=== PATIENT | male | born 1955 | race Caucasian/White ===

== ENCOUNTER 2016-06-06 23:10 | Observation (INO) ==
[2016-06-06] MEDS ORDERED: Aspirin 325 MG TABLET PO ONE (23:17)
[2016-06-06] MEDS ORDERED: 0.9 % Sodium Chloride 500 ML IVC ONE (23:17)
--- NOTE | 2016-06-06 23:34 | Emergency Department Note ---
START Narrative - START START: I examined this patient and my medical decision-making was reviewed with the QUESTIONED DOCUMENTS EXAMINER/PA/Advanced Practice Nurse/Resident Physician. I agree with the documented findings, disposition and treatment plan as described except to the extent set forth below. ED attending note: Patient seen with emergency medicine resident Dr. Oliva. Please see a copy of his note for details of the H&P, evaluation, management and disposition of this patient. We independently had [id number] contact with the patient Briefly: A 60-year-old male history of 2 prior cardiac stents presents with chest pain. 24 hours. With some fatigue. EKG shows no acute ischemic changes. Patient's heart scores elevated enough that with a troponin he will be admitted for further observation . PT stable.
[2016-06-06] MEDS: Nitroglycerin 0.4 MG TAB.SUBL SL PRN ×2 (23:36→23:42)
[2016-06-06 23:37] LABS: Basophils % 0.1 %; Eosinophils # 0.2 K/mcL (0.0-0.6); Eosinophils % 3.2 %; Hematocrit 43.9 % (37.5-50.1); Hemoglobin 14.6 g/dL (12.9-16.9); Immature Granulocytes % 0.6 % (0-4); Lymphocytes # 3.1 K/mcL (0.6-4.6); Lymphocytes % 44.3 %; Mean Corpuscular HGB Conc 33.3 g/dL (31.6-35.5); Mean Corpuscular Hemoglobin 30.4 pg (28.0-33.3); Mean Corpuscular Volume 91.3 fL (83.0-100.0); Mean Platelet Volume 9.8 fL (9.4-12.4); Monocytes # 0.7 K/mcL (0.0-1.3); Monocytes % 10.2 %; Neutrophils # 2.9 K/mcL (1.6-8.9); Platelet Count 215 K/mcL (140-400); Red Blood Count 4.81 M/mcL (4.19-5.50); Red Cell Distribution Width 13.2 % (11.5-14.5); Segmented Neutrophils % 41.6 %
[2016-06-06 23:49] LABS: BUN/Creatinine Ratio 21 (6-26); Blood Urea Nitrogen 22 mg/dL (8-26); Calcium 9.3 mg/dL (8.6-10.8); Carbon Dioxide 26 mEq/L (19-29); Chloride 109 mEq/L (98-109); Glucose 123 mg/dL (70-99); Osmolality,Calculated 299 (280-300); Potassium 4.1 mEq/L (3.5-4.5); Sodium 142 mEq/L (136-145); eGFR For African Americans > 60 (> 60); eGFR For Non-African Americans > 60 (> 60)
--- NOTE | 2016-06-06 23:51 | Emergency Department Note ---
Disposition Clinical Impression: Unstable angina Disposition: Admitted As Inpatient Condition: Undetermined Referrals: Unassigned,Provider [Non-Partnered Physician] - Forms: ED Satisfaction Letter Time of Disposition: 00:29 Chest Pain HPI - General Chief Complaint: ED Chest Pain Stated Complaint: chest pain Time Seen by Provider: 06/06/16 23:13 Source: patient, family Mode of arrival: ambulatory Limitations: no limitations Vital Signs Reviewed: Yes Nursing Notes Reviewed: Yes - History of Present Illness HPI Narrative: T10-year-old male with history of RI, hypertension, hyperlipidemia, right stairs emergency Department complaining of retrosternal chest pain with associated dyspnea that began earlier today. The patient states that his last RI was roughly 2 years ago and he received 2 stents at that time. The patient states that last year he came in for chest pain in the emergency department and received one more stent. The patient states this feels similar to his previous RI. The patient denies any other complaints at this time. The patient did not take any medication prior to arrival. The patient does regularly take his medications as prescribed. Patient denies any fever, chills, focalized weakness , abdominal pain, nausea, vomiting, unilateral leg swelling, recent surgery. Duration: constant Pain Location: substernal Severity: moderate Severity scale (1-10): 7 Quality: tightness, heaviness Pain Radiation: none Improves with: nothing Worsens with: nothing Associated symptoms: Reports: dyspnea Treatments prior to arrival chest pain: none - Related Data On Oral Contraceptives: No Home Medications Medication Instructions Recorded Confirmed Aspirin 81 mg PO HS 08/04/15 08/04/15 Atorvastatin [Lipitor] 20 mg PO HS 08/04/15 08/04/15 Lisinopril [Zestril] 5 mg PO HS 08/04/15 08/04/15 Nitroglycerin 0.4 mg SL Q5MIN PRN 08/04/15 08/04/15 Venlafaxine HCl [Venlafaxine HCl 150 mg PO HS 08/04/15 08/04/15 ER] Previous Rx's Medication Instructions Recorded Clopidogrel [Plavix] 75 mg PO HS 30 Days 08/05/15 Diltiazem CD (24hr) [Cardizem CD] 120 mg PO DAILY #30 cap.er.24h 08/05/15 Fenofibrate Nanocrystallized 145 mg PO DAILY #30 tablet 08/05/15 [Tricor] Allergies Allergy/AdvReac Type Severity Reaction Status Date / Time No Known Allergies Allergy Verified 08/04/15 06:45 All systems ED: reviewed and negative except as stated. Constitutional: Denies: fever, chills, weakness, weight change Eyes: Denies: eye pain, eye discharge, vision change ENT ED: Denies: ear pain, throat pain, dental pain, hearing loss, epistaxis, congestion, dysphagia Cardiovascular: Reports: chest pain. Denies: palpitations, dyspnea on exertion , orthopnea, edema, syncope Respiratory: Reports: dyspnea. Denies: cough, wheezes, hemoptysis, stridor Gastrointestinal: Denies: abdominal pain, nausea, vomiting, diarrhea, constipation, hematemesis, melena, hematochezia Genitourinary: Denies: urgency, dysuria, frequency, hematuria Musculoskeletal: Denies: back pain, neck pain, arthralgia, myalgia Integumentary: Denies: rash, abrasion, lesions Neurological: Denies: headache, weakness, numbness, paresthesias, confusion, abnormal gait, vertigo Chest Pain PMH - Past Medical History Medical history: Reports: coronary artery disease, hypertension, myocardial infarction Surgical history: Reports: angioplasty/stent Psychiatric history: Reports: no psych history - Social History Smoking Status: Never smoker Alcohol use: Reports: rarely Drug use: Reports: none Physical Exam Physical Exam: General: Patient alert, no acute distress, not lethargic HEENT: Head normal inspection, atraumatic, PERRLA, oropharynx grossly intact and normal, trachea midline, no JVD Chest: Nontraumatic, nontender, normal chest rise CV: RRR with no murmurs, rubs, gallops Respiratory: Lungs clear to auscultation bilaterally, no rales, rhonchi, wheezes. Abdomen: Normal inspection, Normal bowel sounds 4 quadrants, nontender to palpation : Patient deferred Extremities: Normal inspection, full range of motion, appropriate pulses, capillary refill under 2 seconds Neurological: Patient alert and oriented 3, cranial nerves II through XII grossly intact, GCS 15 Skin: Warm, intact, no rashes noted - General Limitations: no limitations General appearance: alert, in no apparent distress Course Vital Signs Temperature 98.7 F 06/06/16 23:13 Pulse Rate 82 06/06/16 23:13 Respiratory Rate 18 06/06/16 23:13 Blood Pressure 138/118 06/06/16 23:13 O2 Sat by Pulse Oximetry 95 06/06/16 23:13 Temperature 98.7 F 06/06/16 23:13 Pulse Rate 82 06/06/16 23:13 Respiratory Rate 18 06/06/16 23:13 Blood Pressure 138/118 06/06/16 23:13 O2 Sat by Pulse Oximetry 95 06/06/16 23:13 Oxygen Delivery Oxygen Delivery Room Air Chest Pain - MDM Narrative Medical decision making narrative: Dr. Gregory - Medical Records Medical records reviewed: Yes I reviewed the patient's medical records. - Lab Data Lab results reviewed: Yes I reviewed the patient's lab results. Result diagrams: 06/06/16 23:31 06/06/16 23:31 Lab Results 06/06/16 06/06/16 06/06/16 Range/Units 23:31 23:31 23:31 WBC 6.9 (4.3-11.1) K/mcL RBC 4.81 (4.19-5.50) M/mcL Hgb 14.6 (12.9-16.9) g/dL Hct 43.9 (37.5-50.1) % MCV 91.3 (83.0-100.0) fL MCH 30.4 (28.0-33.3) pg MCHC 33.3 (31.6-35.5) g/dL RDW 13.2 (11.5-14.5) % Plt Count 215 (140-400) K/mcL MPV 9.8 (9.4-12.4) fL Immature Gran % 0.6 (0-4) % Seg Neutrophils % 41.6 % Lymphocytes % 44.3 % Monocytes % 10.2 % Eosinophils % 3.2 % Basophils % 0.1 % Neutrophils # 2.9 (1.6-8.9) K/mcL Lymphocytes # 3.1 (0.6-4.6) K/mcL Monocytes # 0.7 (0.0-1.3) K/mcL Eosinophils # 0.2 (0.0-0.6) K/mcL Basophils # 0.0 (0.0-0.2) K/mcL Sodium 142 (136-145) mEq/L Potassium 4.1 (3.5-4.5) mEq/L Chloride 109 (98-109) mEq/L Carbon Dioxide 26 (19-29) mEq/L BUN 22 (8-26) mg/dL Creatinine 1.03 (0.72-1.25) mg/dL Est GFR ( Amer) > 60 (> 60) Est GFR (Non-Af Amer) > 60 (> 60) BUN/Creatinine Ratio 21 (6-26) Glucose 123 H (70-99) mg/dL Calculated Osmolality 299 (280-300) Calcium 9.3 (8.6-10.8) mg/dL Troponin I 0.00 (0-0.03) ng/mL - Radiology Data Radiology results reviewed: Yes I reviewed the patient's radiology results. - EKG Data EKG attestation: Yes I reviewed and interpreted this EKG. EKG results narrative: Heart rate 79 bpm. VA interval 185 ms. QTC 390 ms. Normal axis. Normal sinus rhythm. No ST elevation or ST depression noted. EKG similar to EKG from 08/05/2015. No acute changes noted.
[2016-06-07] MEDS ORDERED: Naloxone 0.4 MG/ML INJ IVP PRN (04:56)
[2016-06-07] MEDS ORDERED: Ondansetron 4 MG/2 ML VIAL IVP PRN (04:56)
[2016-06-07] MEDS ORDERED: *HR* Morphine 2 MG/ML SYRINGE IVP PRN (04:56)
[2016-06-07] MEDS ORDERED: Acetaminophen 325 MG TABLET PO PRN (04:56)
[2016-06-07] MEDS ORDERED: 0.9 % Sodium Chloride 1,000 ML IVC SCH (05:00)
--- NOTE | 2016-06-07 05:06 | Internal Med History&Physical ---
Date of Encounter: 06/07/16 Time of Encounter: 05:02 Assessment and Plan (1) Chest pain Current visit: No Status: Acute 1. Will cycle troponins and EKG's. 2. Will order ECHO as he has not had one in > 18 months. 3. Keep npo for possible stress test vs [facility]. 4. Consult cardiology. 5. IV morphine and SL Nitroglycerin as needed for chest pain. Qualifiers: Chest pain type: chest pain due to myocardial ischemia Qualified Code(s): I20.8 - Other forms of angina pectoris (2) Coronary artery disease involving [place] heart Current visit: No Status: Chronic 1. Continue home meds as appropriate. 2. Will check ECHO as noted above. 3. Monitor closely on telemetry and clinically. 4. Cardiology consult as above. Qualifiers: Coronary Disease-Associated Artery/Lesion type: [place] artery Associated angina: angina presence unspecified Qualified Code(s): I25.10 - Atherosclerotic heart disease of [place] coronary artery without angina pectoris (3) Hypertension Current visit: No Status: Chronic 1. Continue home meds as appropriate. 2. Monitor BP and adjust meds as necessary. Qualifiers: Hypertension type: essential hypertension Qualified Code(s): I10 - Essential (primary) hypertension (4) DVT prophylaxis Current visit: Yes Status: Acute 1. Heparin SQ. Internal Medicine - H&P: HPI Chief complaint: chest pain Admitted From: Emergency Dept Plans for Post Hospital Care: Home History of present illness: Mr. Mauricio is a 60 year old male who presents with a 2 day history of chest pain , pressure, and shortness of breath. Because of persistence of symptoms and increasing intensity of symptoms, patient was brought to ER by his . He received a dose of nitroglycerin in the ER with almost near complete resolution of symptoms. Routine labs were drawn as well as EKG, and these were all negative for any ischemia or injury. However, given his known coronary disease and presenting symptoms, patient was admitted to hospitalist service for further workup and care. Upon my assessment of the patient, he is pain-free currently. He has minimal chest pressure and no shortness of breath or diaphoresis. He states his symptoms started a couple days ago and occurred both at rest and with activity. He denies any cough, congestion, fevers, vomiting, or diarrhea. He has been religiously taking his cardiac medications as prescribed. He denies any recent prolonged travel or sedentary lifestyle. He states the chest pain and pressure he experienced earlier were identical to symptoms he experienced when he had his myocardial infarction. Past Med Surg Social Fam HX - Past Medical History Attestation: Yes The following information was validated with the patient. Source: patient, old records reviewed Medical history: coronary artery disease, hyperlipidemia, hypertension, myocardial infarction Psychiatric history: no psych history - Past Surgical History Surgical History: angioplasty/stent, orthopedic, other - Social History Smoking Status: Never smoker Smokeless Tobacco Status: No Alcohol use: rarely Drug use: none Current living situation: Home, With Family Activity Level: Independent ambulation - Family History Father Living Status: Hx Family Cardiac Disorders: Yes (Heart disease.) Mother Living Status: Hx Family Cardiac Disorders: Yes Internal Medicine - H&P: Meds Aspirin [Lo-Dose Aspirin EC] 81 mg PO DAILY 06/07/16 [History] Clopidogrel [Plavix] 75 mg PO DAILY 06/07/16 [History] Fenofibrate Nanocrystallized [Tricor] 145 mg PO DAILY 06/07/16 [History] Lisinopril [Zestril] 5 mg PO DAILY 06/07/16 [History] Losartan Potassium [Cozaar] 50 mg PO DAILY 06/07/16 [History] Venlafaxine HCl [Venlafaxine HCl ER] 150 mg PO DAILY 06/07/16 [History] Allergies No Known Allergies Allergy (Verified 08/04/15 06:45) All Systems PM: A 10-system review of systems was performed and is negative for pertinent findings except as documented above in the HPI. - Constitutional Constitutional: no chills, no fever(s) - EENT Eyes: no change in vision, no diplopia Ears: no ear pain, no tinnitus Nose, mouth and throat: no nasal congestion, no sinus pain, no sinus pressure, no sore throat - Cardiovascular Cardiovascular ROS IM: chest pain, diaphoresis, dyspnea, dyspnea on exertion, palpitations, no edema, no lightheadedness, no syncope - Respiratory Respiratory: no cough, no hemoptysis, no wheezing, no chest congestion, no excessive phlegm production, no change in phlegm color - Gastrointestinal Gastrointestinal: heartburn, nausea, no abdominal pain, no diarrhea, no hematemesis, no hematochezia, no melena, no vomiting - Genitourinary Genitourinary ROS male: no dysuria, no flank pain, no hematuria - Musculoskeletal Musculoskeletal ROS IM: no arthralgias, no back pain - Integumentary Integumentary IM: no rash, no jaundice - Neurological Neurological ROS: no dizziness, no focal weakness, no frequent falls, no headache(s), no numbness - Psychiatric Psychiatric: no anxiety, no depression - Endocrine Endocrine IM: no polydipsia, no polyuria - Allergic/Immunologic Allergic/Immunologic: no wheezing, no GI upset with certain foods - Constitutional Vitals: Temp Pulse Resp BP Pulse Ox 97.5 F L 72 16 156/80 96 06/07/16 01:32 06/07/16 01:32 06/07/16 01:32 06/07/16 01:32 06/07/16 01:32 General appearance: Present: cooperative, A&O X 3, pleasant, no acute distress, answers questions appropriately - Head Head exam: Present: atraumatic, normal inspection - Expanded Head Exam Head exam expanded: Absent: abrasion, general tenderness - Eye Eye exam: Present: EOMI, normal appearance, PERRL. Absent: scleral icterus Pupils: Present: normal accommodation - ENT ENT exam: Present: mucous membranes dry, normal exam, normal oropharynx - Neck Neck exam general surgery: Present: full ROM, normal inspection, supple. Absent : lymphadenopathy, thyromegaly - Expanded Neck Exam Neck exam: Absent: carotid bruit - Respiratory Respiratory exam: Present: CTAB. Absent: chest wall tenderness, rales, rhonchi , wheezes - Cardiovascular Cardiovascular exam: Present: RRR, +S1, +S2. Absent: diastolic murmur, systolic murmur - GI/Abdominal GI/Abdominal exam: Present: normal bowel sounds, soft. Absent: hepatomegaly, splenomegaly, tenderness - Extremities Exam Extremities exam: Present: full ROM, joint swelling, warm, radial pulses palpable and symetrical. Absent: calf tenderness, tenderness - Back Exam Back exam: Present: normal inspection. Absent: CVA tenderness (L), CVA tenderness (R) - Neurological Exam Neurological exam: Present: alert, CN II-XII intact, oriented X3, no focal deficits - Psychiatric Psychiatric exam: Present: normal affect, normal mood - Skin Skin exam: Present: dry, warm. Absent: rash Internal Med - H&P Results - Labs CBC & Chem 7: 06/06/16 23:31 06/06/16 23:31 - EKG Data -: EKG Interpreted by Myself - EKG Data Prior EKG available for review: yes When compared to previous EKG: there is no significant change EKG comments: 06/07/16 05:12 Sinus rhythm; no acute ST-T changes
[2016-06-07] MEDS: *HR* Heparin 5,000 UNIT/ML VIAL SQ SCH ×2 (06:34→14:35)
[2016-06-07] MEDS: Aspirin Enteric Coated 81 MG Tablet PO SCH ×2 (07:46→08:00)
[2016-06-07] MEDS: Fenofibrate 54 MG TABLET PO SCH ×2 (07:46→08:00)
[2016-06-07] MEDS ORDERED: Regadenoson 0.4 MG/5 ML SYRINGE IVP ONE (09:56)
--- NOTE | 2016-06-07 13:03 | Nuclear Medicine Stress Report ---
Regadenoson Nuclear Stress Name: Josafat Mauricio Date of Study: 06/07/2016 Date: 1955 Ht: 70.0 in Medical Record#: [id number] Age: 60 Wt: 261.0 lb Gender: Male Order #: [id number] Location: [facility] Room: [facility] Supervising Provider: Opal Paz CNP Reading Physician: Louis Plasencia DO, JONATHAN SALINAS FASNC Ordering Physician: Forrest Merlos MD Primary Care Physician: Joaquim Mosley DO Stress Technologist: Amy Hurley, SECURITIES DEALER, CCT, CPFT Cadd Manager: Sridhar Hebert Indications: Chest Pain Impression: Pharmacologic stress ECG is negative for ischemia at level of heart rate achieved. Gated EF = 51%. Small sized, mild to moderate intensity, fixed inferior perfusion defects possibly due to a prior infarct. Perfusion imaging was negative for ischemia. History: Hypertension Hypercholesteremia Prior PCI Stress Test Summary: Stress Test Type: Pharmacologic Regadenoson 0.4mg/5ml given IV Baseline Information: Initial Heart Rate: 77 Blood Pressure: 122/88 Stress Information: Stress Time: 4 min sec Test Terminated Due to (primary): As per protocol Maximum Blood Pressure: 132/74 Maximum Heart Rate: 96 Percent Maximum Heart Rate Achieved: 59 Double Product: [id number] METS Reached: 1 Symptoms: Shortness of breath Nuclear Summary: SPECT myocardial perfusion imaging using [id number] Sestamibi given intravenously was performed at rest and following cardiac stress testing. The resting images were obtained following initial dose of 10.2 mCi. Following stress an additional dose of 31.6 mCi was given at peak exercise or 30 seconds post regadenoson infusion. Medication Given: Time Medication Dose Units Route Findings: Stress Note * Resting ECG demonstrated normal sinus rhythm. * No baseline arrhythmias were noted. * Pharmacologic stress ECG is negative for ischemia at level of heart rate achieved. * No arrhythmias were noted during stress. * Patient had no chest pain during stress. Hemodynamic responses * Normal hemodynamic responses to pharmacologic stress. Study Quality * Study quality is average. Gated EF % * Gated EF = 51%. Left Ventricle * The left ventricle is not dilated. LVEDV = 107 mL. Inferior Perfusion Rest * The basal and apical inferior segments show mild to moderate reduction in perfusion. Inferior Perfusion Stress * The basal and apical inferior segments show mild to moderate reduction in perfusion. TID * No evidence of transient ischemic dilatation. TID ratio = 1.02. Lung Uptake * There is no evidence of increase lung uptake. Updated by Louis Plasencia DO, FACAugustine, JONATHAN, FASCARMEL on 06/07/2016 12:54:47 PM electronically signed on 06/07/2016 12:59:41 PM with status of Final
--- NOTE | 2016-06-07 14:58 | Cardiology Consult Note ---
Date of Encounter: 06/07/16 Time of Encounter: 14:58 Assessment and Plan (1) Chest pain Current Visit: No Status: Acute Troponins negative x 2. EKG without acute changes. Stress test today negative for ischemia--evidence of prior infarct. Pt requested cardio consult because symptoms are similar to prior anginal equivalent and reports last stress test did not show anything. However, on review--stress test prior to his previous LHC did show a small area that could be ischemia. Pt feels his symptoms require further evaluation. Discussed medical management vs. LHC. Previously not on BB due to fatigue. Will start statin. Hx of intolerance to Imdur due to headaches. Will trial Ranexa. Continue ASA, Plavix. Start Statin. Continue ARB. Will switch his CCB to Norvasc. Echo pending. Further recommendations regarding appropriateness of LHC once pt is seen and evaluated by Dr. Neal. Qualifiers: Chest pain type: unspecified Qualified Code(s): R07.9 - Chest pain, unspecified (2) CAD (coronary artery disease) Current Visit: Yes Status: Acute ASA, Plavix, ARB, CCB. Start statin. No BB due to hx of significant fatigue on BB. No Imdur due to prior intolerance/headaches. Will trial Ranexa. Qualifiers: Coronary Disease-Associated Artery/Lesion type: [place] artery [place] vs. transplanted heart: [place] heart Associated angina: angina presence unspecified Qualified Code(s): I25.10 - Atherosclerotic heart disease of [place] coronary artery without angina pectoris (3) Hypertension Current Visit: No Status: Chronic Currently adequately controlled. Stop Cardizem and switch to Norvasc. Continue ARB. Qualifiers: Hypertension type: essential hypertension Qualified Code(s): I10 - Essential (primary) hypertension Discussion w patient/family: The assessment and plan as outlined above was discussed with the patient and/or family members who expressed understanding and agreement. All questions were answered. Thank you for involving us in the care of your patient. Please call with any questions. I will discuss all the above with Dr. Neal and make changes as necessary. History of Present Illness Consult date: 06/07/16 Requesting physician: Forrest Merlos Consult reason: chest pain Chief complaint: chest pain History of present illness: Mr. Mauricio is a 60 year old male with PMH of CAD s/p PCI, HTN, HLD, ROBERT. He presented yesterday with chest pain. He reports he started having indigestion type symptoms 1 week ago. Yesterday morning he developed chest heaviness that has been constant with intermittent sharp pain. It varies in intensity and he does reports it worsens with exertion, improves with rest. He was given 2 nitro in ED and reports it improved his symptoms, but he still has the pressure. He also experienced dizziness upon standing. He reports increased fatigue and worsening dyspnea. Reports left side numbness at times. Reports symptoms are similar to his prior CA and anginal equivalent. Troponins have been negative x 2. Stress test today showed gated EF 51%, small sized mild-moderate intensity fixed inferior perfusion defect possibly due to prior infarct, negative for ischemia. Pt requested evaluation by cardiology service. Recent CV testing: [facility] 08/05/15: Severe 1 vessel CAD s/p successful PCI with DEBI x 1 to distal RCA. EF 50%. He had remaining 40% prox LAD, 50% mid LAD stenosis. Past Med Surg Social Fam HX - Past Medical History Medical history: coronary artery disease, hyperlipidemia, hypertension, myocardial infarction Psychiatric history: no psych history - Past Surgical History Surgical History: angioplasty/stent - Social History Smoking Status: Never smoker Smokeless Tobacco Status: No Alcohol use: rarely Drug use: none - Family History Mother Living Status: Hx Family Cardiac Disorders: Yes Father Living Status: Hx Family Cardiac Disorders: Yes (Heart disease.) Medications and Allergies Aspirin [Lo-Dose Aspirin EC] 81 mg PO DAILY 06/07/16 [History] Clopidogrel [Plavix] 75 mg PO DAILY 06/07/16 [History] Diltiazem HCl [Diltiazem 24Hr Cd] 120 mg PO DAILY 06/07/16 [History] Fenofibrate Nanocrystallized [Tricor] 145 mg PO DAILY 06/07/16 [History] Ibuprofen [Motrin] 200 mg PO Q6HR PRN 06/07/16 [History] Lisinopril [Zestril] 5 mg PO DAILY 06/07/16 [History] Losartan Potassium [Cozaar] 50 mg PO DAILY 06/07/16 [History] Allergies No Known Allergies Allergy (Verified 08/04/15 06:45) All Systems Review: A 10-system review of systems was performed and is negative for pertinent findings except as documented above in the HPI. - Constitutional Constitutional: fatigue - Cardiovascular Cardiovascular: as per HPI, chest pain at rest, chest pain with exertion, diaphoresis, dyspnea on exertion, radiating jaw, neck or arm pain - Respiratory Respiratory: dyspnea - Neurological Neurological: dizziness Physical Examination Vital Signs, Last 4 Hours Temp Pulse Resp BP Pulse Ox 06/07/16 11:57 98.0 F 72 16 127/78 95 Vital Signs Temp Pulse Resp BP Pulse Ox 06/07/16 11:57 98.0 F 72 16 127/78 95 06/07/16 07:49 95 06/07/16 07:06 97.8 F 75 16 118/67 95 06/07/16 01:32 97.5 F L 72 16 156/80 96 06/07/16 01:05 18 132/98 06/06/16 23:13 98.7 F 82 18 138/118 95 Intake and Output 06/06/16 06/07/16 06/07/16 23:59 07:59 15:59 Other: Meal NPO Weight 118.388 kg 118.926 kg Patient Weight 06/07/16 23:59 Weight 118.926 kg General: Conversant, No Apparent Distress HEENT: Atraumatic, Normocephaly, Mucus Membranes Moist Neck: No JVD, Normal carotid pulses Cardiac: Reg Rate and Rhythm, Normal S1 and S2, No Murmur Lungs: Normal Breath Sounds, No Wheeze, Rales, Rhonchi Neuro: Alert and responsive, No focal deficits noted Abdomen: Soft, Non-Tender Skin: No rashes noted on visualized skin Musculoskeletal: No Chest Wall Tenderness Extremities: No Clubbing, No Cyanosis, No Edema, Normal Pulses Results 06/06/16 23:31 06/06/16 23:31 Lab Results 06/07/16 06/07/16 05:20 12:55 Troponin I 0.00 0.00 Short CBC 06/06/16 Range/Units 23:31 WBC 6.9 (4.3-11.1) K/mcL Hgb 14.6 (12.9-16.9) g/dL Hct 43.9 (37.5-50.1) % Plt Count 215 (140-400) K/mcL Neutrophils # 2.9 (1.6-8.9) K/mcL BMP 06/06/16 Range/Units 23:31 Sodium 142 (136-145) mEq/L Potassium 4.1 (3.5-4.5) mEq/L Chloride 109 (98-109) mEq/L Carbon Dioxide 26 (19-29) mEq/L BUN 22 (8-26) mg/dL Creatinine 1.03 (0.72-1.25) mg/dL Glucose 123 H (70-99) mg/dL Calcium 9.3 (8.6-10.8) mg/dL Cardiac Enzymes 06/07/16 06/07/16 06/06/16 Range/Units 12:55 05:20 23:31 Troponin I 0.00 0.00 0.00 (0-0.03) ng/mL Impressions Chest X-Ray 06/06/16 23:17 IMPRESSION: Hypoventilatory examination with mild right base atelectasis. D/ / Leon Mauricio MD / Leon Mauricio MD Interpreting Provider: Leon Mauricio MD Active Medications Acetaminophen (Tylenol) 650 mg PO Q6HR PRN PRN Reason: Mild Pain (1-3) Stop: 12/07/16 04:57 Aspirin (Aspirin Ec) 81 mg PO DAILY [facility] Stop: 12/07/16 09:01 Last Admin: 06/07/16 08:00 Dose: Not Given Clopidogrel Bisulfate (Plavix) 75 mg PO DAILY [facility] Stop: 12/07/16 09:01 Last Admin: 06/07/16 08:00 Dose: Not Given Fenofibrate (Tricor) 162 mg PO DAILY [facility] Stop: 12/07/16 09:01 Last Admin: 06/07/16 08:00 Dose: Not Given Heparin Sodium (Porcine) (Heparin) 5,000 unit SQ Q8HCO [facility] Stop: 12/07/16 06:01 Last Admin: 06/07/16 14:35 Dose: Not Given Sodium Chloride (0.9 % Sodium Chloride) 1,000 mls @ 75 mls/hr IVC .[id number] [facility] Stop: 12/07/16 05:01 Last Admin: 06/07/16 06:29 Dose: 75 mls/hr Losartan Potassium (Cozaar) 50 mg PO DAILY [facility] Stop: 12/07/16 09:01 Last Admin: 06/07/16 08:00 Dose: Not Given Morphine Sulfate (Morphine Sulfate) 2 mg IVP Q4HR PRN PRN Reason: Chest Pain Stop: 12/07/16 04:57 Naloxone HCl (Narcan) 0.4 mg IVP Q2MIN PRN PRN Reason: Opioid Reversal Stop: 12/07/16 04:57 Nitroglycerin (Nitroglycerin) 0.4 mg SL Q5MIN PRN PRN Reason: Chest Pain Stop: 12/06/16 23:18 Last Admin: 06/06/16 23:42 Dose: 0.4 mg Ondansetron HCl (Zofran) 4 mg IVP Q8HR PRN PRN Reason: Nausea And Vomiting Stop: 12/07/16 04:57 - Imaging and Cardiology Stress Test: report reviewed Cardiac cath: report reviewed - EKG Interpretation EKG results cardiology: personally reviewed (SR, prior inferior CA), other (24 hour tele AVG HR) Consult Discharge Plan - Plan Referrals: James Mosley DO [Primary Care Provider] - 06/15/16 9:30 am
[2016-06-07] MEDS ORDERED: amLODIPine 5 MG TABLET PO SCH (15:30)
--- NOTE | 2016-06-07 15:35 | Event Note ---
Date of Encounter: 06/07/16 Time of Encounter: 15:34 Patient with multiple risk factors admitted for what seems to be stable angina. He is CAD s/p stents X3 and stress test is negative Patient was seen at bedside in no form of distress and denies any new complains Physical exam is unremarkable and work up so far is negative for ischemia Patient has insisted on seeing cardiology prior to discharge Will follow recommendations
--- NOTE | 2016-06-07 16:50 | Discharge Summary ---
Date of Encounter: 06/07/16 Time of Encounter: 16:48 - Discharge Diagnosis (1) Chest pain Priority: Primary Status: Acute Qualifiers: Chest pain type: unspecified Qualified Code(s): R07.9 - Chest pain, unspecified (2) Hypertension Priority: Secondary Status: Chronic Qualifiers: Hypertension type: essential hypertension Qualified Code(s): I10 - Essential (primary) hypertension (3) Hypertriglyceridemia Priority: Secondary Status: Chronic (4) CAD (coronary artery disease) Priority: Secondary Status: Chronic Qualifiers: Coronary Disease-Associated Artery/Lesion type: [place] artery [place] vs. transplanted heart: [place] heart Associated angina: angina presence unspecified Qualified Code(s): I25.10 - Atherosclerotic heart disease of [place] coronary artery without angina pectoris - Discharge Medications Prescriptions: Amlodipine [Norvasc] 5 mg PO DAILY #30 tablet Ranolazine [Ranexa] 500 mg PO BID #60 tab.er.12h Home Medications: Amlodipine [Norvasc] 5 mg PO DAILY #30 tablet 06/07/16 [Rx] Aspirin [Lo-Dose Aspirin EC] 81 mg PO DAILY 06/07/16 [History] Clopidogrel [Plavix] 75 mg PO DAILY 06/07/16 [History] Fenofibrate Nanocrystallized [Tricor] 145 mg PO DAILY 06/07/16 [History] Losartan Potassium [Cozaar] 50 mg PO DAILY 06/07/16 [History] Ranolazine [Ranexa] 500 mg PO BID #60 tab.er.12h 06/07/16 [Rx] Allergies/Adverse Reactions: Allergies No Known Allergies Allergy (Verified 08/04/15 06:45) Procedures/tests Complete & Pending: Procedures Performed prior 72 hours Category Date Time Status NM perry perf SPECT multi [NM] Routine Exams 06/07/16 08:30 Taken ECG 12 lead ECG [ECG] AM 0600 Y 06/07/16 06:00 Ordered EV echocardiogram Routine Y 06/07/16 04:56 Ordered SP pharm nuclear stress Stat Y 06/07/16 08:30 Completed Date of admission: 06/07/16 00:36 Primary care physician: James Mosley, Consults: 06/07/16 04:58 Consult to Physician [CONS] Routine Consulting Provider: Marcin Neal Reason for Consult: chest pain relieved by nitroglycerin; recnt PCI/stent Call Completed: No Discharging clinician: Forrest Merlos Anticipated date of discharge: 06/07/16 - Patient Status Disposition: Home, Self-Care Condition: Fair Functional capacity at discharge: independent ambulation Overall status at discharge: patient is back to baseline - Discharge Instructions Follow Up With: James Mosley DO [Primary Care Provider] - 06/15/16 9:30 am - Diet and Activity Activity: resume usual activities as tolerated Diet: low fat, low cholesterol, low salt diet Interval History: See below Hospital course: Mr. Mauricio is a 60 year old male Admitted to observation for chest pain ACS has been ruled out, troponin negative, nuclear stress test with no ischemia , EKG unremarakble Medications were reconciled viz: D/C cardizem, start Norvasc, D/C Lisinopril, patient is on Losartan. Resume ASA, Plavix Follow up with cardiology in a week - Time Spent with Patient Total time spent providing and/or coordinating discharge services: Less than 30 minutes - Constitutional Vitals: Temp Pulse Resp BP Pulse Ox 98.1 F 96 16 149/86 96 06/07/16 15:29 06/07/16 15:29 06/07/16 15:29 06/07/16 15:29 06/07/16 15:29 General appearance: Present: cooperative, A&O X 3, pleasant, no acute distress, answers questions appropriately - Head Head exam: Present: atraumatic, normocephalic - Eye Eye exam: Present: PERRL, conjuntiva pink, sclera anicteric Pupils: Present: PERRL - Neck Neck exam general surgery: Present: supple, trachea midline. Absent: lymphadenopathy - Respiratory Respiratory exam: Present: CTAB. Absent: accessory muscle use, rales, rhonchi, wheezes - Cardiovascular Cardiovascular exam: Present: RRR, +S1, +S2. Absent: diastolic murmur, gallop, rubs, systolic murmur - GI/Abdominal GI/Abdominal exam: Present: normal bowel sounds, soft, no peritoneal signs. Absent: distended, tenderness - Extremities Exam Extremities exam: Present: warm, radial pulses palpable and symetrical. Absent : calf tenderness, cyanotic, pedal edema - Neurological Exam Neurological exam: Present: CN II-XII intact, oriented X3, no focal deficits. Absent: pronater drift, facial droop, speech deficit - Skin Skin exam: Present: dry, intact
--- NOTE | 2016-06-07 18:39 | Electrocardiograph Report ---
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
[2016-06-07] MEDS ORDERED: Ranolazine 500 MG TAB.ER.12H PO SCH (21:00)
[2016-06-08 11:43] VITALS: BP 149/86
== END 2016-06-07 19:00 | disposition home or self-care (01) ==
LOC: 3BNU 23:10 → EMEROO 23:10 → SUATTDRO 06-07 00:36 → 3BNU 06-07 01:22
PROVIDERS: ADMIT Pediatrics; ATTEND Internal Medicine

== ENCOUNTER 2019-01-22 20:05 | Observation (INO) ==
[2019-01-22] MEDS ORDERED: Aspirin 325 MG TABLET PO ONE (20:20)
[2019-01-22] MEDS ORDERED: Nitroglycerin 0.4 MG TAB.SUBL SL STA (20:36)
[2019-01-22 20:46] LABS: Basophils % 0.1 %; Eosinophils # 0.1 K/mcL (0.0-0.6); Eosinophils % 1.3 %; Hematocrit 45.4 % (37.5-50.1); Hemoglobin 15.2 g/dL (12.9-16.9); Immature Granulocytes % 0.2 % (0-4); Lymphocytes # 2.7 K/mcL (0.6-4.6); Lymphocytes % 32.6 %; Mean Corpuscular HGB Conc 33.5 g/dL (31.6-35.5); Mean Corpuscular Hemoglobin 30.6 pg (28.0-33.3); Mean Corpuscular Volume 91.3 fL (83.0-100.0); Mean Platelet Volume 10.1 fL (9.4-12.4); Monocytes # 0.5 K/mcL (0.0-1.3); Monocytes % 5.7 %; Neutrophils # 4.9 K/mcL (1.6-8.9); Platelet Count 193 K/mcL (140-400); Red Blood Count 4.97 M/mcL (4.19-5.50); Segmented Neutrophils % 60.1 %; White Blood Count 8.2 K/mcL (4.3-11.1)
[2019-01-22 20:51] LABS: INR 1.1
[2019-01-22 20:54] LABS: Activated Partial Thrombo Time 29.7 Seconds (26.0-36.0)
[2019-01-22 21:05] LABS: Albumin 4.5 g/dL (3.5-5.7); Albumin/Globulin Ratio 1.6 (1.1-2.2); BUN/Creatinine Ratio 14 (6-26); Bilirubin,Direct 0.1 mg/dL (0.0-0.2); Bilirubin,Indirect 0.6 mg/dL (0.0-1.0); Bilirubin,Total 0.7 mg/dL (0.3-1.0); Blood Urea Nitrogen 15 mg/dL (8-23); Calcium 9.6 mg/dL (8.6-10.3); Carbon Dioxide 25 mEq/L (23-29); Chloride 105 mEq/L (98-107); Globulin 2.8 g/dL (2.4-3.5); Glucose 174 mg/dL (70-105); Osmolality,Calculated 295 (280-300); Potassium 3.8 mEq/L (3.5-5.1); Sodium 140 mEq/L (136-145); Total Protein 7.3 g/dL (6.4-8.9); eGFR For African Americans > 60 (> 60); eGFR For Non-African Americans > 60 (> 60)
[2019-01-22 21:08] LABS: Troponin I 0.04 ng/mL (< 0.04)
[2019-01-22] MEDS ORDERED: *HR* Heparin 5,000 UNIT/ML VIAL IVP PRN ×2 (21:08)
[2019-01-22] MEDS ORDERED: *HR* Heparin 5,000 UNIT/ML VIAL IVP ONE (21:08)
[2019-01-22] MEDS ORDERED: Heparin 25,000 UNIT/250 ML D5W 25,000 UNIT/250 ML IV.SOLN IVC SCH (21:15)
[2019-01-23 03:40] LABS: Estimated Average Glucose 151 mg/dl
[2019-01-23 03:51] LABS: Chol/HDL Ratio 5.5 (0-4.9)
[2019-01-23] MEDS: amLODIPine 5 MG TABLET PO SCH (08:52)
[2019-01-23] MEDS: Aspirin 81 MG TAB.CHEW PO SCH (08:52)
[2019-01-23] MEDS ORDERED: D5% in Water 1,000 ML IVC PRN (12:09)
[2019-01-23] MEDS ORDERED: Dextrose Gel 15 GM/37.5 ML TUBE PO PRN ×2 (12:09)
[2019-01-23] MEDS ORDERED: *HR* Dextrose 50 % in Water (Syg) 50 ML SYRINGE IVP PRN (12:09)
[2019-01-23] MEDS ORDERED: Heparin 1,000 UNITS/500 mL 500 ML ONE (12:26)
[2019-01-23] MEDS ORDERED: ISOVUE-370 200 ML INFUS..BTL ONE ×2 (12:26→13:37)
[2019-01-23] MEDS ORDERED: *HR* Heparin 10,000 UNIT/10 ML VIAL ONE (12:26)
[2019-01-23] MEDS ORDERED: 0.9 % Sodium Chloride 2,000 ML ONE (12:26)
[2019-01-23] MEDS ORDERED: Nitroglycerin 1,000 MCG/10 ML VIAL IV ONE (12:27)
[2019-01-23] MEDS ORDERED: *HR* Midazolam HCl 2 MG/2 ML VIAL ONE ×2 (12:52→13:27)
[2019-01-23] MEDS ORDERED: *HR* FentaNYL (PF) 100 MCG/2 ML VIAL ONE (12:52)
[2019-01-23] MEDS ORDERED: *HR* Bivalirudin 250 MG VIAL IVC ONE ×2 (13:44→14:02)
[2019-01-23] MEDS ORDERED: *HR* Ticagrelor 90 MG TABLET ONE (13:45)
[2019-01-23] MEDS ORDERED: 0.9 % Sodium Chloride 1,000 ML IVC SCH (14:30)
[2019-01-23] MEDS ORDERED: 0.9 % Sodium Chloride 1,000 ML ONE (18:26)
[2019-01-23] MEDS: Insulin LISPRO 300 UNITS/3 ML VIAL SQ SCH (19:40)
[2019-01-23] MEDS ORDERED: Perflutren Lipid Microsphere 1.3 ML in 0.9 % Sodium Chloride 8.7 ML IVP ONE (20:20)
[2019-01-23] MEDS ORDERED: Perflutren Lipid Microsphere 2 ML VIAL ONE (20:22)
[2019-01-23] MEDS ORDERED: Insulin DETEMIR 100 UNIT/ML X5UNITS SQ SCH (21:00)
[2019-01-23] MEDS ORDERED: Adenosine 90 MG/30 ML MLS IV ONE (21:59)
[2019-01-24 04:18] LABS: Basophils % 0.1 %; Eosinophils # 0.2 K/mcL (0.0-0.6); Eosinophils % 1.9 %; Hematocrit 41.9 % (37.5-50.1); Hemoglobin 13.6 g/dL (12.9-16.9); Immature Granulocytes % 0.3 % (0-4); Lymphocytes # 2.8 K/mcL (0.6-4.6); Lymphocytes % 36.2 %; Mean Corpuscular HGB Conc 32.5 g/dL (31.6-35.5); Mean Corpuscular Hemoglobin 30.1 pg (28.0-33.3); Mean Corpuscular Volume 92.7 fL (83.0-100.0); Monocytes # 0.8 K/mcL (0.0-1.3); Monocytes % 10.5 %; Neutrophils # 3.9 K/mcL (1.6-8.9); Platelet Count 158 K/mcL (140-400); Red Blood Count 4.52 M/mcL (4.19-5.50); Red Cell Distribution Width 13.2 % (11.5-14.5); White Blood Count 7.7 K/mcL (4.3-11.1)
[2019-01-24 04:37] LABS: BUN/Creatinine Ratio 18 (6-26); Blood Urea Nitrogen 16 mg/dL (8-23); Calcium 8.4 mg/dL (8.6-10.3); Carbon Dioxide 27 mEq/L (23-29); Chloride 107 mEq/L (98-107); Glucose 166 mg/dL (70-105); Magnesium 1.8 mg/dL (1.6-2.6); Osmolality,Calculated 297 (280-300); Potassium 3.9 mEq/L (3.5-5.1); Sodium 141 mEq/L (136-145); eGFR For African Americans > 60 (> 60); eGFR For Non-African Americans > 60 (> 60)
[2019-01-24] MEDS: amLODIPine 5 MG TABLET PO SCH (08:20)
[2019-01-24] MEDS: Aspirin 81 MG TAB.CHEW PO SCH (08:20)
[2019-01-24] MEDS: Insulin LISPRO 300 UNITS/3 ML VIAL SQ SCH (08:20)
[2019-01-24 11:00] VITALS: BP 143/72
== END 2019-01-24 12:34 | disposition home or self-care (01) ==
LOC: 2ANU 20:05 → EMEROOARM 20:05 → SUATTDRO 21:58 → 2ANU 22:17
PROVIDERS: ADMIT Internal Medicine; ATTEND Internal Medicine

== ENCOUNTER 2019-08-29 21:17 | Observation (INO) ==
[2019-08-29] MEDS ORDERED: 0.9 % Sodium Chloride 500 ML IVC ONE (21:28)
[2019-08-29] MEDS ORDERED: Isovue-370 500 ML BOTTLE IVP ONE (21:29)
[2019-08-29 21:44] LABS: Basophils % 0.1 %; Eosinophils # 0.1 K/mcL (0.0-0.6); Eosinophils % 1.1 %; Hemoglobin 14.3 g/dL (12.9-16.9); Immature Granulocytes % 0.4 % (0-4); Lymphocytes # 2.6 K/mcL (0.6-4.6); Lymphocytes % 24.3 %; Mean Corpuscular HGB Conc 32.5 g/dL (31.6-35.5); Mean Corpuscular Hemoglobin 29.9 pg (28.0-33.3); Mean Corpuscular Volume 91.9 fL (83.0-100.0); Monocytes # 0.9 K/mcL (0.0-1.3); Monocytes % 8.4 %; Platelet Count 179 K/mcL (140-400); Red Blood Count 4.79 M/mcL (4.19-5.50); Red Cell Distribution Width 12.7 % (11.5-14.5); Segmented Neutrophils % 65.7 %; White Blood Count 10.7 K/mcL (4.3-11.1)
[2019-08-29 21:48] LABS: INR 1.1; Prothrombin Time 12.5 Seconds (9.4-12.1)
[2019-08-29 21:51] LABS: Activated Partial Thrombo Time 30.1 Seconds (26.0-36.0)
[2019-08-29 22:06] LABS: Alanine Aminotransferase 23 Units/L (7-52); Albumin 4.3 g/dL (3.5-5.7); Albumin/Globulin Ratio 1.5 (1.1-2.2); Alkaline Phosphatase 77 Units/L (34-104); Aspartate Amino Transferase 21 Units/L (13-39); BUN/Creatinine Ratio 15 (6-26); Bilirubin,Direct 0.2 mg/dL (0.0-0.2); Bilirubin,Indirect 0.8 mg/dL (0.0-1.0); Blood Urea Nitrogen 12 mg/dL (8-23); Carbon Dioxide 27 mEq/L (23-29); Chloride 105 mEq/L (98-107); Globulin 2.8 g/dL (2.4-3.5); Glucose 124 mg/dL (70-105); Lipase 23 Units/L (11-82); Osmolality,Calculated 289 (280-300); Potassium 3.7 mEq/L (3.5-5.1); Sodium 139 mEq/L (136-145); Total Protein 7.1 g/dL (6.4-8.9); Troponin I < 0.03 ng/mL (< 0.04); eGFR For African Americans > 60 (> 60); eGFR For Non-African Americans > 60 (> 60)
[2019-08-29] MEDS ORDERED: Aspirin 81 MG TAB.CHEW PO ONE (23:28)
[2019-08-29 23:38] LABS: Bilirubin,Urine Negative (Negative); Blood,Urine Negative (Negative); Clarity,Urine Clear (Clear); Color,Urine Colorless (Yellow); Glucose,Urine (UA) Normal (Normal); Ketones,Urine Negative (Negative); Leukocyte Esterase,Urine Negative (Negative); Nitrite,Urine Negative (Negative); PH,Urine 6.5 pH Units (5.0-8.0); Protein,Urine Negative (Neg-Trace); Specific Gravity,Urine > 1.030 (1.010-1.025); Urobilinogen,Urine Normal (Normal)
[2019-08-30] MEDS ORDERED: Naloxone 0.4 MG/ML INJ IVP PRN (00:27)
[2019-08-30] MEDS ORDERED: Nitroglycerin 0.4 MG TAB.SUBL SL PRN (00:46)
[2019-08-30] MEDS ORDERED: *HR* Dextrose 50 % in Water (Vial) 50 ML VIAL IVP PRN (02:49)
[2019-08-30] MEDS ORDERED: Dextrose Gel 15 GM/37.5 ML TUBE PO PRN ×2 (02:49)
[2019-08-30] MEDS ORDERED: D5% in Water 1,000 ML IVC PRN (02:49)
[2019-08-30 03:37] LABS: Hematocrit 40.1 % (37.5-50.1); Hemoglobin 13.4 g/dL (12.9-16.9); Mean Corpuscular HGB Conc 33.4 g/dL (31.6-35.5); Mean Corpuscular Hemoglobin 30.7 pg (28.0-33.3); Mean Platelet Volume 9.8 fL (9.4-12.4); Platelet Count 158 K/mcL (140-400); Red Blood Count 4.36 M/mcL (4.19-5.50); Red Cell Distribution Width 12.8 % (11.5-14.5); White Blood Count 9.3 K/mcL (4.3-11.1)
[2019-08-30 03:55] LABS: BUN/Creatinine Ratio 15 (6-26); Blood Urea Nitrogen 12 mg/dL (8-23); Calcium 8.7 mg/dL (8.6-10.3); Carbon Dioxide 28 mEq/L (23-29); Chloride 104 mEq/L (98-107); Glucose 133 mg/dL (70-105); Osmolality,Calculated 290 (280-300); Potassium 3.6 mEq/L (3.5-5.1); Sodium 139 mEq/L (136-145); eGFR For African Americans > 60 (> 60); eGFR For Non-African Americans > 60 (> 60)
[2019-08-30] MEDS ORDERED: Insulin LISPRO 300 UNITS/3 ML VIAL SQ SCH ×3 (06:00→21:00)
[2019-08-30] MEDS ORDERED: *HR* Heparin 5,000 UNIT/ML VIAL SQ SCH (06:00)
[2019-08-30] MEDS ORDERED: Perflutren Lipid Microsphere 1.3 ML in 0.9 % Sodium Chloride 8.7 ML IVP ONE (07:42)
[2019-08-30] MEDS ORDERED: Aspirin Enteric Coated 81 MG Tablet PO SCH (09:00)
[2019-08-30] MEDS ORDERED: amLODIPine 5 MG TABLET PO SCH (09:00)
[2019-08-30] MEDS ORDERED: Regadenoson 0.4 MG/5 ML SYRINGE IVP ONE (09:12)
[2019-08-30] MEDS ORDERED: Isosorbide MONOnitrate (24 HR) 30 MG TAB.ER.24H PO SCH (14:30)
[2019-08-30 14:56] VITALS: BP 156/75
== END 2019-08-30 16:42 | disposition home or self-care (01) ==
LOC: 2ANU 21:17 → EMEROOARM 21:17 → 2ANU 08-30 00:38
PROVIDERS: ADMIT Internal Medicine; ATTEND Internal Medicine

== ENCOUNTER 2020-05-18 18:46 | Observation (INO) ==
[2020-05-18 19:36] LABS: Basophils % 0.2 %; Eosinophils # 0.2 K/mcL (0.0-0.6); Eosinophils % 2.2 %; Hematocrit 44.6 % (37.5-50.1); Hemoglobin 14.6 g/dL (12.9-16.9); Immature Granulocytes % 0.2 % (0-4); Lymphocytes # 3.3 K/mcL (0.6-4.6); Lymphocytes % 39.5 %; Mean Corpuscular HGB Conc 32.7 g/dL (31.6-35.5); Mean Corpuscular Hemoglobin 29.6 pg (28.0-33.3); Mean Corpuscular Volume 90.3 fL (83.0-100.0); Mean Platelet Volume 9.7 fL (9.4-12.4); Monocytes # 0.7 K/mcL (0.0-1.3); Monocytes % 8.8 %; Neutrophils # 4.1 K/mcL (1.6-8.9); Platelet Count 214 K/mcL (140-400); Red Blood Count 4.94 M/mcL (4.19-5.50); Red Cell Distribution Width 13.2 % (11.5-14.5); Segmented Neutrophils % 49.1 %; White Blood Count 8.3 K/mcL (4.3-11.1)
[2020-05-18 20:01] LABS: BUN/Creatinine Ratio 18 (6-26); Blood Urea Nitrogen 16 mg/dL (8-23); Calcium 9.3 mg/dL (8.6-10.3); Carbon Dioxide 28 mEq/L (23-29); Chloride 105 mEq/L (98-107); Glucose 166 mg/dL (70-105); Osmolality,Calculated 295 (280-300); Sodium 140 mEq/L (136-145); Troponin I < 0.03 ng/mL (< 0.04); eGFR For African Americans > 60 (> 60); eGFR For Non-African Americans > 60 (> 60)
[2020-05-18] MEDS ORDERED: Morphine Sulfate 2 MG/ML SYRINGE IVP STA (20:14)
[2020-05-18] MEDS ORDERED: Aspirin 81 MG TAB.CHEW PO SCH (20:15)
[2020-05-18] MEDS ORDERED: Aspirin 81 MG TAB.CHEW PO STA (20:58)
[2020-05-18] MEDS ORDERED: Nitroglycerin 0.4 MG TAB.SUBL SL PRN (21:24)
[2020-05-18] MEDS ORDERED: *HR* Dextrose 50 % in Water (Vial) 50 ML VIAL IVP PRN (21:25)
[2020-05-18] MEDS ORDERED: D5% in Water 1,000 ML IVC PRN (21:25)
[2020-05-18] MEDS ORDERED: Dextrose Gel 15 GM/37.5 ML TUBE PO PRN ×2 (21:25)
[2020-05-18] MEDS ORDERED: Perflutren Lipid Microsphere 1.3 ML in 0.9 % Sodium Chloride 8.7 ML IVP PRN (21:27)
[2020-05-18] MEDS ORDERED: Melatonin 3 MG TABLET PO PRN (21:30)
[2020-05-18] MEDS ORDERED: Ondansetron 4 MG/2 ML VIAL IVP PRN (21:30)
[2020-05-18] MEDS ORDERED: Insulin LISPRO 300 UNITS/3 ML VIAL SUBQ SCH (21:30)
[2020-05-18] MEDS ORDERED: Naloxone 0.4 MG/ML INJ IVP PRN (21:30)
[2020-05-18 21:47] LABS: Chol/HDL Ratio 3.8 (0-4.9); Cholesterol 114 mg/dL (< 200); HDL Cholesterol 30 mg/dL (40-59); LDL Cholesterol,Calculated 37 mg/dL (< 100); Triglycerides 234 mg/dL (< 150)
[2020-05-18] MEDS ORDERED: Morphine Sulfate 2 MG/ML SYRINGE IVP ONE (22:25)
[2020-05-19 00:36] LABS: Basophils % 0.1 %; Eosinophils # 0.2 K/mcL (0.0-0.6); Eosinophils % 2.2 %; Hematocrit 43.2 % (37.5-50.1); Hemoglobin 14.3 g/dL (12.9-16.9); Immature Granulocytes % 0.1 % (0-4); Lymphocytes # 2.7 K/mcL (0.6-4.6); Lymphocytes % 40.5 %; Mean Corpuscular HGB Conc 33.1 g/dL (31.6-35.5); Mean Corpuscular Hemoglobin 30.4 pg (28.0-33.3); Mean Corpuscular Volume 91.7 fL (83.0-100.0); Mean Platelet Volume 9.7 fL (9.4-12.4); Monocytes # 0.6 K/mcL (0.0-1.3); Monocytes % 8.6 %; Neutrophils # 3.3 K/mcL (1.6-8.9); Platelet Count 178 K/mcL (140-400); Red Blood Count 4.71 M/mcL (4.19-5.50); Red Cell Distribution Width 13.2 % (11.5-14.5); Segmented Neutrophils % 48.5 %; White Blood Count 6.8 K/mcL (4.3-11.1)
[2020-05-19 00:55] LABS: BUN/Creatinine Ratio 22 (6-26); Blood Urea Nitrogen 17 mg/dL (8-23); Calcium 8.6 mg/dL (8.6-10.3); Carbon Dioxide 28 mEq/L (23-29); Chloride 104 mEq/L (98-107); Glucose 237 mg/dL (70-105); Osmolality,Calculated 297 (280-300); Potassium 4.1 mEq/L (3.5-5.1); Sodium 139 mEq/L (136-145); eGFR For African Americans > 60 (> 60); eGFR For Non-African Americans > 60 (> 60)
[2020-05-19] MEDS ORDERED: Regadenoson 0.4 MG/5 ML SYRINGE IVP ONE (07:16)
[2020-05-19] MEDS ORDERED: Aspirin Enteric Coated 81 MG Tablet PO SCH (09:00)
[2020-05-19] MEDS ORDERED: amLODIPine 5 MG TABLET PO SCH (09:00)
[2020-05-19] MEDS: Insulin LISPRO 300 UNITS/3 ML VIAL SUBQ SCH ×2 (09:26→10:32)
[2020-05-19 10:03] VITALS: BP 142/75
== END 2020-05-19 11:28 | disposition home or self-care (01) ==
LOC: 3BNU 18:46 → EMEROOARM 18:46 → 3BNU 21:44
PROVIDERS: ADMIT Family Medicine; ATTEND Family Medicine

== ENCOUNTER 2021-10-07 09:47 | Observation (INO) ==
[2021-10-07] MEDS ORDERED: Aspirin 81 MG TAB.CHEW PO ONE (10:00)
[2021-10-07 10:37] LABS: Basophils % 0.4 %; Eosinophils # 0.2 K/mcL (0.0-0.6); Hematocrit 44.4 % (37.5-50.1); Hemoglobin 14.8 g/dL (12.9-16.9); Immature Granulocytes % 0.4 % (0-4); Lymphocytes # 3.2 K/mcL (0.6-4.6); Lymphocytes % 40.1 %; Mean Corpuscular HGB Conc 33.3 g/dL (31.6-35.5); Mean Corpuscular Hemoglobin 29.7 pg (28.0-33.3); Mean Platelet Volume 9.9 fL (9.4-12.4); Monocytes # 0.6 K/mcL (0.0-1.3); Monocytes % 7.1 %; Neutrophils # 4.1 K/mcL (1.6-8.9); Platelet Count 173 K/mcL (140-400); Red Blood Count 4.99 M/mcL (4.19-5.50); Red Cell Distribution Width 13.2 % (11.5-14.5); White Blood Count 8.1 K/mcL (4.3-11.1)
[2021-10-07 11:00] LABS: BUN/Creatinine Ratio 16 (6-26); Blood Urea Nitrogen 15 mg/dL (8-23); Carbon Dioxide 25 mEq/L (23-29); Chloride 105 mEq/L (98-107); Glucose 305 mg/dL (70-105); Osmolality,Calculated 296 (280-300); Potassium 3.9 mEq/L (3.5-5.1); Sodium 137 mEq/L (136-145); Troponin I < 0.03 ng/mL (< 0.04)
[2021-10-07] MEDS ORDERED: Naloxone 0.4 MG/ML INJ IVP PRN (11:34)
[2021-10-07] MEDS ORDERED: Nitroglycerin 0.4 MG TAB.SUBL SL PRN (11:35)
[2021-10-07] MEDS ORDERED: *HR* Dextrose 50 % in Water (Syg) 50 ML SYRINGE IVP PRN (11:40)
[2021-10-07] MEDS ORDERED: D5% in Water 1,000 ML IVC PRN (11:40)
[2021-10-07] MEDS ORDERED: Dextrose Gel 15 GM/37.5 ML TUBE PO PRN ×2 (11:40)
[2021-10-07 12:11] LABS: Chol/HDL Ratio 6.7 (0-4.9); Cholesterol 209 mg/dL (< 200); HDL Cholesterol 31 mg/dL (40-59); Triglycerides 408 mg/dL (< 150)
[2021-10-07] MEDS: Aspirin 81 MG TAB.CHEW PO SCH (12:55)
[2021-10-07 14:40] LABS: Estimated Average Glucose 209 mg/dl; Hemoglobin A1C 8.9 %
[2021-10-07] MEDS: Insulin LISPRO 300 UNITS/3 ML VIAL SUBQ SCH ×3 (16:56→23:55)
[2021-10-07] MEDS: Nitroglycerin 0.4 MG TAB.SUBL SL SCH ×2 (17:41→17:42)
[2021-10-07] MEDS: *HR* Heparin 5,000 UNIT/ML VIAL SQ SCH (18:27)
[2021-10-08] MEDS: *HR* Heparin 5,000 UNIT/ML VIAL SQ SCH ×2 (05:53→18:05)
[2021-10-08] MEDS ORDERED: Regadenoson 0.4 MG/5 ML SYRINGE IVP ONE (06:08)
[2021-10-08] MEDS: Insulin LISPRO 300 UNITS/3 ML VIAL SUBQ SCH ×4 (09:31→20:49)
[2021-10-08] MEDS: amLODIPine 5 MG TABLET PO SCH (09:32)
[2021-10-08] MEDS: Aspirin 81 MG TAB.CHEW PO SCH (09:32)
[2021-10-08] MEDS: carvediloL 6.25 MG TABLET PO SCH (18:04)
[2021-10-08] MEDS ORDERED: Acetaminophen 325 MG TABLET PO PRN (18:28)
[2021-10-09] MEDS: *HR* Heparin 5,000 UNIT/ML VIAL SQ SCH ×2 (05:30→17:25)
[2021-10-09] MEDS: Insulin LISPRO 300 UNITS/3 ML VIAL SUBQ SCH ×4 (08:20→19:48)
[2021-10-09] MEDS: carvediloL 6.25 MG TABLET PO SCH ×2 (08:27→17:24)
[2021-10-09] MEDS: amLODIPine 5 MG TABLET PO SCH (08:27)
[2021-10-09] MEDS: Insulin DETEMIR 100 UNIT/ML X5UNITS SUBQ SCH (08:27)
[2021-10-09] MEDS: Aspirin 81 MG TAB.CHEW PO SCH (08:27)
[2021-10-09] MEDS ORDERED: *HR* FentaNYL (PF) 100 MCG/2 ML VIAL ONE (13:15)
[2021-10-09] MEDS ORDERED: *HR* Heparin 10,000 UNIT/10 ML VIAL ONE ×2 (13:15→13:56)
[2021-10-09] MEDS ORDERED: *HR* Midazolam HCl 2 MG/2 ML VIAL ONE (13:15)
[2021-10-09] MEDS ORDERED: 0.9 % Sodium Chloride 1,000 ML ONE (13:16)
[2021-10-09] MEDS ORDERED: Iopamidol - 370 200 ML INFUS..BTL ONE (13:16)
[2021-10-09] MEDS ORDERED: Nitroglycerin 1,000 MCG/5 ML VIAL IV ONE (13:16)
[2021-10-09] MEDS ORDERED: Heparin 1,000 UNITS/500 mL 500 ML ONE (13:16)
[2021-10-10] MEDS: *HR* Heparin 5,000 UNIT/ML VIAL SQ SCH (05:55)
[2021-10-10 06:42] LABS: Hematocrit 43.8 % (37.5-50.1); Hemoglobin 14.5 g/dL (12.9-16.9)
[2021-10-10 07:02] LABS: BUN/Creatinine Ratio 18 (6-26); Blood Urea Nitrogen 16 mg/dL (8-23)
[2021-10-10 07:03] LABS: Troponin I 0.03 ng/mL (< 0.04)
[2021-10-10 07:34] VITALS: BP 126/68; PULSE 69; TEMP 97.6; O2SAT 96
[2021-10-10] MEDS: amLODIPine 5 MG TABLET PO SCH (07:57)
[2021-10-10] MEDS: Aspirin 81 MG TAB.CHEW PO SCH (07:57)
[2021-10-10] MEDS: carvediloL 6.25 MG TABLET PO SCH (07:57)
[2021-10-10] MEDS: Insulin LISPRO 300 UNITS/3 ML VIAL SUBQ SCH (08:57)
[2021-10-10] MEDS: Insulin DETEMIR 100 UNIT/ML X5UNITS SUBQ SCH (08:57)
== END 2021-10-10 11:23 | disposition home or self-care (01) ==
LOC: EMEROOARM 09:47 → 3BNU 09:47 → SUATTDRO 16:30 → 3BNU 19:33
PROVIDERS: ADMIT Internal Medicine; ATTEND Internal Medicine